=== PATIENT | male | born 1970 ===

== ENCOUNTER → 2020-04-23 | Day surgery (SDC) | payer OTHER ==
[~2020-04-23] MED LIST: DAILY MULTIPLE1 EAC1 PO; LIPITOR40 MG PO; PERCOCET 5-3251 EACH PO; VITAMIN D310 MC3 PO; ZESTORETIC 20-1 EAC1 PO; ZINC30 MG PO
[2020-04-23 07:58] LABS: HGB 15.2 g/dl (13.2-18.0); MCHC 33.8 g/dL (32.0-36.0); MCV 91.6 fL (78.0-100.0); MPV 8.7 fL (6.0-9.5); RBC 4.91 M/uL (4.70-6.00); RDW 13.2 % (11.5-14.0)
[2020-04-23 10:26] LABS: ALBUMIN 3.5 g/dL (3.4-5.0); BILIRUBIN - TOTAL 0.7 mg/dL (0.2-1.0); BUN/CREAT RATIO (CALC) 27.1 RATIO; CREATININE 0.48 mg/dL (0.67-1.17); GLOBULIN (CALCULATION) 3.8 g/dL; POTASSIUM 3.7 mmol/L (3.5-5.1); TOTAL PROTEIN 7.3 g/dL (6.4-8.2)
== END | disposition home or self-care (01) ==
LOC: FAS 07:06
PROVIDERS: Orthopaedic Surgery
DX: S83.203A Other tear of unspecified meniscus, current injury, right knee, initial encounter (principal); M17.11 Unilateral primary osteoarthritis, right knee; M22.2X1 Patellofemoral disorders, right knee; M25.861 Other specified joint disorders, right knee; F17.200 Nicotine dependence, unspecified, uncomplicated; I10 Essential (primary) hypertension; M19.90 Unspecified osteoarthritis, unspecified site; E66.9 Obesity, unspecified; X58.XXXA Exposure to other specified factors, initial encounter; Z20.822 Contact with and (suspected) exposure to COVID-19; Z79.899 Other long term (current) drug therapy
CPT/HCPCS: 36415; 71045; 80053; 93005; J1170; J2250; J2704; J2765; J3010; J7120